=== PATIENT | female | born 2000 | race Two or more races ===

== ENCOUNTER 2018-02-01 15:41 | Emergency (ER) | payer MEDICAID ==
[~2018-02-01] VITALS: Ht 162.6 cm; Wt 52.0 kg
[2018-02-01 16:58] LABS: BASOPHILS # (AUTO) 0.05 x10^3/uL (0-0.3); BASOPHILS % (AUTO) 1 % (0-1); EOSINOPHILS # (AUTO) 0.09 x10^3/uL (0-0.8); EOSINOPHILS % (AUTO) 1 % (1-7); LYMPHOCYTES # (AUTO) 1.68 x10^3/uL (1-6.1); LYMPHOCYTES % (AUTO) 16 % (22-44); MD NO; MEAN CORPUSCULAR HEMOGLOBIN 29.6 pg (27.0-34.8); MEAN CORPUSCULAR HGB CONC 33.6 g/dL (32.4-35.8); MEAN CORPUSCULAR VOLUME 88.3 fL (80-100); MEAN PLATELET VOLUME 11.5 fL (7.4-10.4); MONOCYTES # (AUTO) 0.63 x10^3/uL (0-1.4); MONOCYTES % (AUTO) 6 % (2-9); NEUTROPHILS # (AUTO) 8.11 x10^3/uL (1.8-8.0); NEUTROPHILS % (AUTO) 77 % (42-75); PLATELET COUNT 209 x10^3/uL (130-400); RED BLOOD COUNT 4.24 x10^6/uL (3.82-5.3)
[2018-02-01 17:43] LABS: ALBUMIN 3.2 g/dL (3.4-5.0); ANION GAP 11 mmol/L (5-15); CALCIUM 8.8 mg/dL (8.5-10.1); CHLORIDE 108 mmol/L (98-107)
[2018-02-01 17:53] LABS: MICROSCOPIC NOT IND
[2018-02-01 17:57] LABS: CULTURE INDICATED? NO
[2018-02-01 18:02] LABS: CREATININE 0.87 mg/dL (0.55-1.02)
[2018-02-01 18:37] VITALS: BP 111/62
== END 2018-02-01 18:46 | disposition home or self-care (01) ==
LOC: ED 18:40
DX: O20.0 Threatened abortion (principal)
CPT/HCPCS: 36415; 76815; 80048; 81003; 82040; 84702; 85025; 86901; 99285

== ENCOUNTER 2018-03-08 21:10 | Emergency (ER) | payer MEDICAID ==
[~2018-03-08] VITALS: Ht 160 cm; Wt 57.3 kg
[2018-03-08 21:18] VITALS: BP 114/63
== END 2018-03-08 23:07 | disposition home or self-care (01) ==
LOC: ED 22:45
DX: O99.512 Diseases of the respiratory system complicating pregnancy, second trimester (principal); J06.9 Acute upper respiratory infection, unspecified; Z3A.00 Weeks of gestation of pregnancy not specified
CPT/HCPCS: 99281

== ENCOUNTER 2018-04-19 20:05 | Emergency (ER) | payer MEDICAID ==
[~2018-04-19] VITALS: Ht 160 cm; Wt 59.1 kg
[2018-04-19] MEDS ORDERED: SODIUM CHLORIDE FLUSH 10ML SYR IVF ONE (20:30)
[2018-04-19] MEDS ORDERED: ONDANSETRON 2MG/ML, 2ML IVPush ONE (20:30)
--- NOTE | 2018-04-19 21:31 | NUR ---
TO ROOM FROM LOBBY. NAD.
[2018-04-19 21:47] LABS: BASOPHILS # (AUTO) 0.04 x10^3/uL (0-0.3); BASOPHILS % (AUTO) 0 % (0-1); EOSINOPHILS # (AUTO) 0.15 x10^3/uL (0-0.8); EOSINOPHILS % (AUTO) 1 % (1-7); LYMPHOCYTES # (AUTO) 2.15 x10^3/uL (1-6.1); LYMPHOCYTES % (AUTO) 20 % (22-44); MD NO; MEAN CORPUSCULAR HEMOGLOBIN 29.7 pg (27.0-34.8); MEAN CORPUSCULAR HGB CONC 34.4 g/dL (32.4-35.8); MEAN CORPUSCULAR VOLUME 86.4 fL (80-100); MEAN PLATELET VOLUME 11.6 fL (7.4-10.4); MONOCYTES # (AUTO) 0.86 x10^3/uL (0-1.4); MONOCYTES % (AUTO) 8 % (2-9); NEUTROPHILS # (AUTO) 7.65 x10^3/uL (1.8-8.0); NEUTROPHILS % (AUTO) 71 % (42-75); PLATELET COUNT 212 x10^3/uL (130-400); RED CELL DISTRIBUTION WIDTH 13.2 % (9.6-15.2)
[2018-04-19 21:54] LABS: ALANINE AMINOTRANSFERASE 23 U/L (12-78); ALBUMIN 2.9 g/dL (3.4-5.0); ANION GAP 7 mmol/L (5-15); CALCIUM 8.2 mg/dL (8.5-10.1); CHLORIDE 107 mmol/L (98-107)
[2018-04-19 21:57] LABS: ALKALINE PHOSPHATASE 109 U/L (45-117); BILIRUBIN,TOTAL 0.2 mg/dL (0.2-1.0); CREATININE 0.68 mg/dL (0.55-1.02)
--- NOTE | 2018-04-19 22:01 | NUR ---
PT HERE FOR N/V/D. PT ALSO COMPLAINING OF ABD CRAMPING AND LOW BACK PAIN SINCE TUESDAY. UA SENT TO LAB. PT REFUSING IV AT THIS TIME. PT DOESNT LIKE NEEDLES. PT IN NAD. VSS. PT NOT VOMITING IN ROOM. CALL LIGHT IN REACH
[2018-04-19 22:04] LABS: CULTURE INDICATED? YES; MICROSCOPIC INDICATED
[2018-04-19] MEDS ORDERED: SODIUM CHLORIDE 0.9% 1,000ML IVBOLUS ONE (22:30)
[2018-04-19] MEDS ORDERED: ONDANSETRON ODT 4 MG ONE (22:30)
[2018-04-19 22:36] VITALS: BP 108/59
--- NOTE | 2018-04-19 22:36 | NUR ---
PT MEDICATED WITH ODT ZOFRAN PER MD ORDER. PT GIVEN WATER FOR PO CHALLANGE, PT TOLERATING RIGHT NOW. CALL LIGHT IN REACH
[2018-04-19] MEDS ORDERED: ONDANSETRON ODT 4 MG PO ONE (23:00)
[2018-04-19] MEDS ORDERED: CEPHALEXIN 500 MG CAPSULE ONE (23:19)
--- NOTE | 2018-04-19 23:23 | NUR ---
PT MEDICATED WITH ABX AND TO BE DISCHARGED TO L [facility] D FOR MONITORING.
--- NOTE | 2018-04-19 23:29 | NUR ---
Patient given discharge instructions and they have confirmed that they understand the instructions. Patient taken to l and d for monitoring
[2018-04-19] MEDS ORDERED: NITROFURANTOIN (MACROBID) 100 MG CAPSULE PO ONE (23:30)
[2018-04-19] MEDS ORDERED: CEPHALEXIN 500 MG CAPSULE PO ONE (23:30)
== END 2018-04-19 23:32 | disposition home or self-care (01) ==
LOC: ED 21:57
DX: O23.13 Infections of bladder in pregnancy, third trimester (principal); O21.2 Late vomiting of pregnancy; Z3A.29 29 weeks gestation of pregnancy
CPT/HCPCS: 36415; 80053; 81001; 83690; 85025; 87086; 99283; Q0162

== ENCOUNTER 2018-04-19 23:45 | Outpatient (CLI) | payer MEDICAID ==
[~2018-04-19] VITALS: Ht 161.3 cm; Wt 59.3 kg
[2018-04-19 23:57] VITALS: BP 111/57
== END 2018-04-20 00:23 | disposition home or self-care (01) ==
LOC: LDOP 23:45
PROVIDERS: ATTEND Obstetrics & Gynecology Female Pelvic Medicine and Reconstructive Surgery
DX: Z34.83 Encounter for supervision of other normal pregnancy, third trimester (principal); Z3A.28 28 weeks gestation of pregnancy
CPT/HCPCS: 36415; 82731